=== PATIENT | male | born 2000 | race Caucasian/White ===

== ENCOUNTER 2020-03-21 13:25 | Emergency (ER) | payer BC, OTHER ==
[2020-03-21 13:33] VITALS: BP 120/90; PULSE 65; TEMP 97.8; BMI 21.7
--- NOTE | 2020-03-21 13:58 | PDOC ---
Attending Attestation - Resident Resident Name: RitaDeangelo - ED Attending Attestation I have performed the following: I have examined & evaluated the patient, The case was reviewed & discussed with the resident, I agree w/resident's findings & plan, Exceptions are as noted - HPI HPI: 03/21/20 14:21 19 years old no past medical history with laceration to left second finger using a kitchen knife tetanus up-to-date Mild pain persistent constant no exacerbating leaving factors denies any weakness to finger - Physicial Exam PE: 03/21/20 14:21 Vitals: Triage Vital signs reviewed General Appearance: No acute distress, well nourished well developed, Head: Atraumatic, Skin: 2 cm laceration to left index finger, FDS FDP intact sensation normal. No weakness, neurovascular intact distally Neuro: strength intact to all extremities, sensation intact to all extremities, Psych: Normal mood, normal affect - Medical Decision Making 03/21/20 14: 2 cm laceration thoroughly irrigated and sutured with good approximation No weakness noted on examination patient provided with hand follow-up Findings, need for follow-up and strict return instructions cussed with patient. Discharge - Discharge Information Problems reviewed: Yes Clinical Impression/Diagnosis: Finger laceration Qualifiers: Encounter type: initial encounter Finger: index finger Damage to nail status: without damage Foreign body presence: without foreign body Laterality: left Qualified Code(s): S61.211A - Laceration without foreign body of left index finger without damage to nail, initial encounter Condition: Stable Disposition: HOME - Follow up/Referral Referrals: Jace Deal MD [Staff Physician] - - Patient Discharge Instructions Patient Printed Discharge Instructions: DI for Laceration Repair Additional Instructions: You came into the ER with a finger laceration. We stitched it together with 4 sutures. Please come back to have the sutures removed in 10 to 14 days. If your finger starts to hurt very badly, becomes red, you cannot flex or extend your finger please come back to the hospital immediately as that might mean your finger is getting infected. You must return to the Emergency Department with any new complaints, if your symptoms persist and do not improve or if you develop any other new or worsening concerns. Call up the hand surgeon - Dr. Deal - if any problems arise with your finger. Please read the attached handouts for further information about your ER visit and what you should do moving forward. Thank you for coming to the [facility]. We hope you feel better soon! Print Language: ALGERIAN - Post Discharge Activity
--- NOTE | 2020-03-21 13:58 | PDOC ---
History of Present Illness - General Chief Complaint: Laceration Stated Complaint: LEFT 2ND FINGER LACERATION Time Seen by Provider: 03/21/20 13:27 History Source: Patient Exam Limitations: No Limitations - History of Present Illness Initial Comments: Michel is a 19 yo healthy M w a hx of hayfever who presents to the [facility] after experiencing a laceration to his left second finger. He states he was using a kitchen knife trying to cut frozen butter and the knife lacerated his 2nd finger. He applied pressure and gauze to the finger which stopped the bleeding. He is able to flex and extend the finger. He denies abnormal sensation in the finger. States the pain is relieved after taking tylenol and motrin. - Of note, patient is currently taking amoxicillin for wisdom teeth removal yesterday. - Tetanus was updated 2 years prior Denies other injuries. PCP: Kaylee hopkins PSH: Septoplasty, wisdom teeth removed Social Hx: Denies smoking, drinking, or other substance abuse Allergies: NKA, NKDA Past History - Medical History Allergies/Adverse Reactions: Allergies Allergy/AdvReac Type Severity Reaction Status Date / Time No Known Allergies Allergy Verified 03/21/20 13:26 Home Medications: Ambulatory Orders Acetaminophen W/ Codeine #3 [Tylenol # 3 -] 1 tab PO ASDIR PRN 03/21/20 Amoxicillin mg PO TID 03/21/20 COPD: No - Immunization History Immunization Up to Date: Yes - Psycho-Social/Smoking History Smoking History: Never smoked Have you smoked in the past 12 months: No Information on smoking cessation initiated: No - Substance Abuse Hx (Audit-C & DAST Scrn) How often the patient has a drink containing alcohol: Monthly or less Score: In Men: 4 or > Positive; In Women: 3 or > Positive: 1 Screen Result (Pos requires Nsg. Audit-10AR): Negative In the last yr the pt used illegal drug/Rx for NonMed reason: No Score: Yes response is considered Positive: 0 Screen Result (Positive result requires Nsg. DAST-10): Negative Review of Systems - Review of Systems Able to Perform ROS?: Yes Comments:: CONSTITUTIONAL: Absent: fever, no chills, no fatigue EYES: Absent: visual changes ENT: Absent: ear pain, no sore throat CARDIOVASCULAR: Absent: chest pain, no palpitations RESPIRATORY: Absent: cough, no SOB GI: Absent: abdominal pain, no nausea, no vomiting, no constipation, no diarrhea GENITOURINARY: Absent: dysuria, no frequency, no hematuria MUSKULOSKELETAL: Absent: back pain, no arthralgia, no myalgia SKIN: Present: Laceration Absent: rash NEURO: Absent: headache *Physical Exam - Vital Signs Last Vital Signs Temp Pulse Resp BP Pulse Ox 97.8 F 65 18 120/90 98 03/21/20 13:25 03/21/20 13:25 03/21/20 13:25 03/21/20 13:03/21/20 13:25 - Physical Exam LEFT HAND: 2nd digit: there is a 2 cm simple horizontal linear laceration between the DIP and PIP joints on the mid volar surface of the 2nd digit. There is no exposed tendon. 5/5 FDP and 5/5 FDS strength. 5/5 sensation in finger compared to right 2nd finger. 5/5 strength in finger compared to right 2nd digit. - 2+ radial and ulnar pulses - 1st, 3rd, 4th, 5th fingers normal without injury GENERAL: Well-appearing, well-nourished. No apparent distress. HEENT: Normocephalic, atraumatic. PERRL, EOM intact. CARDIOVASCULAR: Normal S1, S2. Regular rate and rhythm. PULMONARY: No evidence of respiratory distress. Lungs clear to auscultation bilaterally. No wheezing, rales or rhonchi. ABDOMEN: Soft, non-distended, non-tender. EXTREMITIES: Normal ROM in all four extremities. No gross deformities. SKIN: Warm, dry. No rash NEUROLOGICAL: No focal neurological deficits. Procedures - Laceration/Wound Repair Left Anterior Distal Volar Finger 2nd digit Wound Length: to 2.5 cm Wound Explored: clean, no foreign body present Wound's Depth, Shape: superficial, linear Irrigated w/ Saline: Yes Betadine Prep: Yes Anesthesia: 1% Lidocaine Amount of Anesthetic (ccs): 2 Wound Debrided: minimal Wound Repaired With: Sutures Suture Size/Type: 4:0 Number of Sutures: 4 (Simple sutures) Layer Closure: No Sterile Dressing Applied: Yes Medical Decision Making - Medical Decision Making Michel is a 19 yo healthy M w a hx of [facility] who presents to the [facility] after experiencing a laceration to his left second finger. He states he was using a kitchen knife trying to cut frozen butter and the knife lacerated his 2nd finger. He applied pressure and gauze to the finger which stopped the bleeding. He is able to flex and extend the finger. He denies abnormal sensation in the finger. States the pain is relieved after taking tylenol and motrin. - Of note, patient is currently taking amoxicillin for wisdom teeth removal yesterday. - Tetanus was updated 2 years prior Denies other injuries. Vital Signs Temp Pulse Resp BP Pulse Ox 97.8 F 65 18 120/90 98 03/21/20 13:25 03/21/20 13:25 03/21/20 13:25 03/21/20 13:25 03/21/20 13:25 DDx IBNLT: Finger laceration, tendon injury, vascular injury MDM: Patient is neurovascularly intact in the left 2nd finger. Full 5/5 sensation and strength. Full 5/5 FDP and FDS strength compared to right hand. No concern for foreign body as patient was cut with a kitchen knife and no broken objects. Tetanus UTD. Plan: irrigate with saline and betadine, anesthetize, repair with stitches, DC home with return in 10-14 days for suture removal. Procedure: Washed hand with soap and water under sink for 3 minutes, then irrigated wound with sterile saline and betadine. Anesthetized the finger with 2 cc of 1% lidocaine. Sutured the laceration with 4, 4-0, simple sutures, with good approximation. Patient tolerated procedure well. Post procedure patient had full strength of FDP and FDS, easily able to flex and extend the finger with full strength. Bacitracin bandage applied on laceration. I discussed the physical exam findings, ancillary test results and final diagnoses with the patient. I answered all of the patient's questions. The patient was satisfied with the care received and felt comfortable with the discharge plan and treatment plan. The patient will return to the Emergency Department with any new, persistent or worsening symptoms. Dispo: Home with strict return precautions, hand surgeon referral for any complications, and return in 10-14 days for suture removal. Please note, this clinical encounter is taking place during a federal and state health care emergency attributable to the novel Chow Virus pandemic. The Medical Aide of the Department of Health and Human Services has declared, pursuant to the Public Health Service Act 319F-3 (42 U.S.C. 247d-6d), that a covered persons activities related to medical countermeasures against COVID-19 will be immune from liability under Federal and State law. Discharge - Discharge Information Problems reviewed: Yes Clinical Impression/Diagnosis: Finger laceration Qualifiers: Encounter type: initial encounter Finger: index finger Damage to nail status: without damage Foreign body presence: without foreign body Laterality: left Qualified Code(s): S61.211A - Laceration without foreign body of left index finger without damage to nail, initial encounter Condition: Stable Disposition: HOME - Admission No - Follow up/Referral Referrals: Jace Deal MD [Staff Physician] - - Patient Discharge Instructions Patient Printed Discharge Instructions: DI for Laceration Repair Additional Instructions: You came into the ER with a finger laceration. We stitched it together with 4 sutures. Please come back to have the sutures removed in 10 to 14 days. If your finger starts to hurt very badly, becomes red, you cannot flex or extend your finger please come back to the hospital immediately as that might mean your finger is getting infected. You must return to the Emergency Department with any new complaints, if your symptoms persist and do not improve or if you develop any other new or worsening concerns. Call up the hand surgeon - Dr. Deal - if any problems arise with your finger. Please read the attached handouts for further information about your ER visit and what you should do moving forward. Thank you for coming to the [facility]. We hope you feel better soon! Print Language: BENGALI - Post Discharge Activity
== END 2020-03-21 14:10 | disposition home or self-care (01) ==
LOC: FER 13:25
PROC: 0HQGXZZ Repair Left Hand Skin, External Approach (ICD-10-PCS; principal; 2020-03-21)
DX: S61.211A Laceration without foreign body of left index finger without damage to nail, initial encounter (principal)
CPT/HCPCS: 99282-25

== ENCOUNTER 2020-03-31 15:29 | Emergency (ER) | payer BC ==
--- NOTE | 2020-03-31 15:32 | PDOC ---
Suture Removal/Wound Check HPI - History of Present Illness Chief Complaint: Suture/Staple Removal(Here) Stated Complaint: SUTURE REMOVAL Time Seen by Provider: 03/31/20 15:30 History Source: Yes: Patient Exam Limitations: Yes: No Limitations Date of Last ED visit: 03/21/20 - Previous ED Treatment Type of procedure performed on last visit: Yes: Laceration Repair - Onset of Previous Treatment Comment:: 19 yo M presents 10 days s/p lac repair to L index finger, 4 sutures were placed. Denies any pain, swelling, redness, drainage. Past History - Medical History Allergies/Adverse Reactions: Allergies Allergy/AdvReac Type Severity Reaction Status Date / Time No Known Allergies Allergy Verified 03/21/20 13:26 Home Medications: Ambulatory Orders Acetaminophen W/ Codeine #3 [Tylenol # 3 -] 1 tab PO ASDIR PRN 03/21/20 Amoxicillin mg PO TID 03/21/20 COPD: No - Immunization History Immunization Up to Date: Yes - Psycho-Social/Smoking History Smoking History: Never smoked Have you smoked in the past 12 months: No *Review of Systems - Review of Systems Able to Perform ROS?: Yes GENERAL/CONSTITUTIONAL: No fever or chills. No weakness. HEAD, EYES, EARS, NOSE AND THROAT: No change in vision. No ear pain or d ischarge. No sore throat. SKIN: No rash. NEUROLOGIC: No headache, vertigo, loss of consciousness, or change in strength/sensation. *Physical Exam - Physical Exam GENERAL: Awake, alert, and fully oriented, in no acute distress EXTREMITIES: Normal range of motion, no edema. No clubbing or cyanosis. No cords, erythema, or tenderness NEUROLOGICAL: Cranial nerves II through XII grossly intact. Normal speech, normal gait. Motor and sensation intact SKIN: Warm, dry, normal turgor, no rashes. L index finger with [address], healing wound. Procedures - Additional Procedures Additional Procedures: other (4 sutures removed with forceps and #11 blade, steristrips placed) Discharge - Discharge Information Problems reviewed: Yes Clinical Impression/Diagnosis: Visit for suture removal Condition: Stable Disposition: HOME - Follow up/Referral - Patient Discharge Instructions - Post Discharge Activity
[2020-03-31 15:33] VITALS: BP 114/80; PULSE 80; TEMP 98.7; BMI 21.7
== END 2020-03-31 15:48 | disposition home or self-care (01) ==
LOC: FER 15:29
DX: Z48.02 Encounter for removal of sutures (principal)
CPT/HCPCS: 99281-25

== ENCOUNTER 2021-02-15 20:53 | Emergency (ER) | payer BC ==
[2021-02-15 21:03] VITALS: BP 144/90; PULSE 100; TEMP 98.1; BMI 22.6
[2021-02-15] MEDS ORDERED: LIDOCAINE HCL 1%, 10 MG/ML (20ML VIAL) ONE (21:30)
[2021-02-15] MEDS ORDERED: LIDOCAINE HCL 1%, 10 MG/ML (50 mL VIAL) INF ONE (21:32)
[2021-02-15] MEDS ORDERED: AMOX TR/POT CLAV 875MG/125MG TABLETS (FP) PO ONE (21:32)
== END 2021-02-15 21:58 | disposition home or self-care (01) ==
LOC: FER 20:53
PROC: 0HQ0XZZ Repair Scalp Skin, External Approach (ICD-10-PCS; principal; 2021-02-15)
DX: S01.01XA Laceration without foreign body of scalp, initial encounter (principal)
CPT/HCPCS: 99283-25

== ENCOUNTER 2021-02-22 14:19 | Emergency (ER) | payer BC ==
[2021-02-22 14:23] VITALS: BP 112/64; PULSE 67; TEMP 98.3; BMI 22.6
== END 2021-02-22 15:01 | disposition home or self-care (01) ==
LOC: FER 14:19
DX: Z48.02 Encounter for removal of sutures (principal)
CPT/HCPCS: 99281-25